=== PATIENT | male | born 1985 | race Caucasian/White ===

== ENCOUNTER 2017-03-24 09:44 | Emergency (ER) | payer SELFPAY ==
[~2017-03-24] VITALS: Ht 172.7 cm; Wt 76.0 kg
[2017-03-24 09:51] VITALS: BP 128/90; PULSE 53; RESP 16; TEMP 97.6; O2SAT 99
[2017-03-24] MEDS ORDERED: SODIUM CHLOR 0.9% 1000 ML INJ 1,000 ML IV SCH (10:02)
[2017-03-24] MEDS ORDERED: FAMOTIDINE 20 MG/2 ML VIAL IV PUSH ONE (10:15)
[2017-03-24] MEDS ORDERED: SODIUM CHLORIDE 0.9% FLUSH 10 ML FLUSH IV FLUSH PRN (10:15)
[2017-03-24] MEDS ORDERED: ONDANSETRON HCL 4 MG/2 ML VIAL IVP ONE (10:15)
[2017-03-24] MEDS ORDERED: LIDOCAINE VISCOUS 2% SOLN 15 ML UDC PO ONE (10:15)
[2017-03-24] MEDS ORDERED: ALUMINUM/MAGNESIUM/SIMETH 30 ML CUP PO ONE (10:15)
--- NOTE | 2017-03-24 10:15 | PD ---
HPI Chief Complaint: GI Complaint Time Seen by Provider: 09:54 Travel History International Travel<30 days: No Contact w/Intl Traveler<30days: No Traveled to known affect area: No History of Present Illness HPI Patient is a 31-year-old male presents to emergency room complaints of abdominal pain. He reports that 2 days ago, began to have left upper quadrant abdominal pain, reports that pain is [id number] in nature. Patient reports increased nausea and vomiting with the symptoms. He reports that nothing makes symptoms better or worse. Patient reports that he had similar symptoms 3 months ago, reports that he cannot remember what happened at that time. Patient denies any constipation or diarrhea, denies ingesting foods which exacerbated his symptoms. Denies fever/chills. Denies chest pain/sob. PFSH Past Medical History Medical History: Denies Significant Hx Influenza Vaccination: No Past Surgical History Surgical History: No Previous Surgery Social History Alcohol Use: Yes (RARELY) Tobacco Use: Yes (1/2 PPD) Substance Use: No ("NOT ANYMORE") Allergies-Medications (Allergen,Severity, Reaction): Coded Allergies: morphine (Verified Allergy, Unknown, Nausea/Vomiting, 03/24/17) Reported Meds & Prescriptions Reported Meds & Active Scripts Active Omeprazole 40 Mg Cap 40 Mg PO DAILY Zofran (Ondansetron HCl) 4 Mg Tab 4 Mg PO Q6HR PRN Review of Systems General / Constitutional: No: Fever Eyes: No: Visual changes HENT: No: Headaches Cardiovascular: No: Chest Pain or Discomfort Respiratory: No: Shortness of Breath Gastrointestinal: Positive: Nausea, Vomiting, Abdominal Pain Genitourinary: No: Dysuria Musculoskeletal: No: Pain Skin: No Rash Neurologic: No: Weakness Psychiatric: No: Depression Endocrine: No: Polydipsia Hematologic/Lymphatic: No: Easy Bruising Physical Exam Narrative GENERAL: mild distress SKIN: Focused skin assessment warm/dry. HEAD: Atraumatic. Normocephalic. EYES: Pupils equal and round. No scleral icterus. No injection or drainage. ENT: No nasal bleeding or discharge. Mucous membranes pink and moist. NECK: Trachea midline. No JVD. CARDIOVASCULAR: Regular rate and rhythm. No murmur appreciated. RESPIRATORY: No accessory muscle use. Clear to auscultation. Breath sounds equal bilaterally. GASTROINTESTINAL: Abdomen soft, increased tenderness to LUQ, no rebound on guarding on exam MUSCULOSKELETAL: No obvious deformities. No clubbing. No cyanosis. No edema. NEUROLOGICAL: Awake and alert. No obvious cranial nerve deficits. Motor grossly within normal limits. Normal speech. PSYCHIATRIC: Appropriate mood and affect; insight and judgment normal. Data Data Last Documented VS Vital Signs Date Time Temp Pulse Resp B/P (MAP) Pulse Ox O2 Delivery O2 Flow Rate FiO2 03/24/17 11:50 60 16 141/88 (105) 100 Room Air 03/24/17 09:51 97.6 Orders Orders Complete Blood Count With Diff (03/24/17 10:02) Comprehensive Metabolic Panel (03/24/17 10:02) Lipase (03/24/17 10:02) Urinalysis - C+S If Indicated (03/24/17 10:02) Iv Access Insert/Monitor (03/24/17 10:02) NPO (03/24/17 10:02) Ondansetron Inj (Zofran Inj) (03/24/17 10:15) Sodium Chlor 0.9% 1000 Ml Inj (Ns 1000 M (03/24/17 10:02) Sodium Chloride 0.9% Flush (Ns Flush) (03/24/17 10:15) Famotidine Inj (Pepcid Inj) (03/24/17 10:15) Al-Mag Hy-Si 40-40-4 Mg/Ml Liq (Mag-Al P (03/24/17 10:15) Lidocaine 2% Viscous (Xylocaine 2% Visco (03/24/17 10:15) Us Abdomen Pancreas (03/24/17 ) Sodium Chlor 0.9% 1000 Ml Inj (Ns 1000 M (03/24/17 11:45) Sucralfate Liq (Carafate Liq) (03/24/17 12:00) Labs Laboratory Tests Test 03/24/17 10:10 03/24/17 10:15 Urine Collection Type CLEAN CATCH Urine Color YELLOW Urine Turbidity CLEAR Urine pH 5.5 Urine Specific [place] 1.022 Urine Protein NEG mg/dL Urine Glucose (UA) NEG mg/dL Urine Ketones NEG mg/dL Urine Occult Blood NEG Urine Nitrite NEG Urine Bilirubin NEG Urine Leukocyte Esterase NEG Urine RBC 0-3 /hpf Urine Squamous Epithelial Cells 0-5 /hpf Microscopic Urinalysis Comment CULT NOT INDICATED Urine Collection Time 10:10 White Blood Count 11.5 TH/MM3 Red Blood Count 5.30 MIL/MM3 Hemoglobin 15.6 GM/DL Hematocrit 46.9 % Mean Corpuscular Volume 88.6 FL Mean Corpuscular Hemoglobin 29.5 PG Mean Corpuscular Hemoglobin Concent 33.3 % Red Cell Distribution Width 12.7 % Platelet Count 260 TH/MM3 Mean Platelet Volume 8.1 FL Neutrophils (%) (Auto) 68.5 % Lymphocytes (%) (Auto) 24.2 % Monocytes (%) (Auto) 2.6 % Eosinophils (%) (Auto) 3.8 % Basophils (%) (Auto) 0.9 % Neutrophils # (Auto) 7.9 TH/MM3 Lymphocytes # (Auto) 2.8 TH/MM3 Monocytes # (Auto) 0.3 TH/MM3 Eosinophils # (Auto) 0.4 TH/MM3 Basophils # (Auto) 0.1 TH/MM3 CBC Comment DIFF FINAL Differential Comment Blood Urea Nitrogen 8 MG/DL Creatinine 0.61 MG/DL Random Glucose 101 MG/DL Total Protein 7.3 GM/DL Albumin 3.5 GM/DL Calcium Level 8.5 MG/DL Alkaline Phosphatase 99 U/L Aspartate Amino Transf (AST/SGOT) 13 U/L Alanine Aminotransferase (ALT/SGPT) 23 U/L Total Bilirubin 0.3 MG/DL Sodium Level 139 MEQ/L Potassium Level 4.3 MEQ/L Chloride Level 107 MEQ/L Carbon Dioxide Level 23.7 MEQ/L Anion Gap 8 MEQ/L Estimat Glomerular Filtration Rate 155 ML/MIN Lipase 434 U/L MDM Medical Decision Making Medical Screen Exam Complete: Yes Emergency Medical Condition: Yes Medical Record Reviewed: Yes Interpretation(s) Vital Signs Date Time Temp Pulse Resp B/P (MAP) Pulse Ox O2 Delivery O2 Flow Rate FiO2 03/24/17 09:51 97.6 53 16 128/90 (103) 99 Differential Diagnosis Differential includes gastritis, gastroenteritis, gastric ulcer, esophagitis, acute cholecystitis Narrative Course Patient is a 31-year-old male who presents to emergency room complaints of left upper quadrant abdominal pain for the past 2 days. Patient reports increased nausea and vomiting with symptoms, denies any diarrhea. he does have increased tenderness to left upper quadrant exam, plan to obtain CBC, CMP, lipase. We'll administer IV fluids, Zofran, GI cocktail as well as Pepcid. Plan to monitor patient at this time. CBC & BMP Diagram 03/24/17 10:15 Total Protein 7.3, Albumin 3.5, Calcium Level 8.5, Alkaline Phosphatase 99, Aspartate Amino Transf (AST/SGOT) 13 L, Alanine Aminotransferase (ALT/SGPT) 23, Total Bilirubin 0.3 lipase 434: US ordered Patient resting comfortably at this time. Last Impressions Pancreas Ultrasound 03/24/17 0000 Signed Impressions: Service Date/Time: Friday, March 24, 2017 10:58 - CONCLUSION: 1. Unremarkable ultrasound of the pancreas 2. No gallstones or biliary tract obstruction. Justice Lewis MD Patient is feeling much better at this time. Ultrasound is unremarkable for acute changes the pancreas. Patient with no gallstones or biliary tract obstruction. Plan to have patient follow-up with gastrointestinal doctor, will start him on a ppi and carafate. He will return to ER as needed. Abdomen is soft , nt/nd, no peritoneal signs on discharge Diagnosis Primary Impression: Abdominal pain Qualified Codes: R10.10 - Upper abdominal pain, unspecified Additional Impression: Nausea & vomiting Referrals: Mana Sales MD Patient Instructions: General Instructions Departure Forms: Tests/Procedures, Work Release Enter return to work date: Mar 26, 2017 Additional Instructions: Please follow up with roller varnisher as soon as possible Return to ER as needed Please take all medications as prescribed Please take the OMEPRAZOLE on an empty stomach with a sip of water. Wait 30 minutes after you take this medication to eat or drink anything Please follow up with your primary care doctor Return to ER if symptoms worsen or persist Med/Other Pt SpecificInfo: Prescription(s) given Scripts Sucralfate Liq (Carafate Liq) 1 Gm/10 Ml Susp 1 GM PO TID for Duodenal ulcer, #900 ML 0 Refills on empty stomach Prov: Charo Nelson DO 03/24/17 Omeprazole (Omeprazole) 40 Mg Cap 40 MG PO DAILY, #30 CAP 0 Refills Prov: Charo Nelson DO 03/24/17 Ondansetron (Zofran) 4 Mg Tab 4 MG PO Q6HR Y for NAUSEA OR VOMITING, #20 TAB 0 Refills Prov: Charo Nelson DO 03/24/17 Disposition: 01 DISCHARGE HOME Condition: Stable Charo Nelson DO Mar 24, 2017 10:15
[2017-03-24 10:20] LABS: AUTOMATED NEUTROPHIL # 7.9 TH/MM3 (1.8-7.7); BASOPHIL # 0.1 TH/MM3 (0-0.2); BASOPHIL % 0.9 % (0.0-2.0); EOSINOPHIL # 0.4 TH/MM3 (0-0.4); EOSINOPHIL % 3.8 % (0.0-4.0); HEMATOCRIT 46.9 % (39.0-51.0); HEMO FLAGS DIFF FINAL; LYMPH % 24.2 % (9.0-44.0); LYMPHOCYTE # 2.8 TH/MM3 (1.0-4.8); MEAN CELL VOLUME 88.6 FL (80.0-100.0); MEAN CORPUSCULAR HEMOGLOBIN 29.5 PG (27.0-34.0); MEAN CORPUSCULAR HGB CONC 33.3 % (32.0-36.0); MONO % 2.6 % (0.0-8.0); NEUT % 68.5 % (16.0-70.0); PLATELET COUNT 260 TH/MM3 (150-450); RED CELL DISTRIBUTION WIDTH 12.7 % (11.6-17.2); WHITE BLOOD COUNT 11.5 TH/MM3 (4.0-11.0)
[2017-03-24 10:20] LABS: BLOOD, URINE NEG (NEG); GLUCOSE,URINE NEG (NEG); KETONE, URINE NEG (NEG); NITRITE,URINE NEG (NEG); PH, URINE 5.5 (5.0-8.5)
[2017-03-24 10:26] LABS: METHOD OF COLLECTION CLEAN CATCH; RBC, URINE 0-3 /hpf (0-3); URINE COLOR YELLOW (YELLW/STRAW)
[2017-03-24 10:27] LABS: COMMENT (UR) CULT NOT INDICATED; CULTURE IF INDICATED CULT NOT INDICATED; SQUAMOUS EPITHELIAL CELL URINE 0-5 /hpf (0-5)
[2017-03-24 10:29] LABS: CHLORIDE 107 MEQ/L (98-107); POTASSIUM 4.3 MEQ/L (3.5-5.1); SODIUM (NA) 139 MEQ/L (136-145)
[2017-03-24 10:34] LABS: ANION GAP 8 MEQ/L (5-15); BICARBONATE 23.7 MEQ/L (21.0-32.0); BLOOD UREA NITROGEN 8 MG/DL (7-18)
[2017-03-24 10:37] LABS: ALT (GPT) 23 U/L (12-78); AST (GOT) 13 U/L (15-37); GLOMERULAR FILTRATION RATE 155 ML/MIN (>89)
[2017-03-24 10:39] LABS: TOTAL BILIRUBIN ADULT 0.3 MG/DL (0.2-1.0)
[2017-03-24 10:40] LABS: ALKALINE PHOSPHATASE 99 U/L (45-117)
[2017-03-24] MEDS ORDERED: OMEP40CA2 PO (10:49)
[2017-03-24] MEDS ORDERED: ZOFR4TAB PO (10:49)
[2017-03-24 10:58] VITALS: BP 137/71; PULSE 64; RESP 18; O2SAT 100
--- NOTE | 2017-03-24 11:36 | RADRPT ---
EXAM DATE/TIME: 03/24/2017 10:58 [facility] COMPARISON: No previous studies available for comparison. INDICATIONS : Left upper quadrant pain. MEDICAL HISTORY : Left upper quadrant pain. SURGICAL HISTORY : None. ENCOUNTER: Initial ACUITY: 2 days PAIN SCORE: 5/10 LOCATION: Right upper quadrant MEASUREMENTS: LIVER: 17.4 cm length COMMON DUCT: 3 mm RIGHT KIDNEY: NOT SCANNED FINDINGS: LIVER: Normal echotexture without focal lesion or ductal dilatation. The portal system is patent. There is n o ascites. COMMON DUCT: No intraluminal mass or stone visualized. GALLBLADDER: Contains no stones, demonstrates no wall thickening or pericholecystic fluid. PANCREAS: The visualized portions are within normal limits. CONCLUSION: 1. Unremarkable ultrasound of the pancreas 2. No gallstones or biliary tract obstruction. Justice Lewis MD on March 24, 2017 at 11:33 Board Certified Radiologist. This report was verified electronically.
[2017-03-24] MEDS ORDERED: SODIUM CHLOR 0.9% 1000 ML INJ 1,000 ML IV ONE (11:45)
[2017-03-24 11:50] VITALS: BP 141/88; PULSE 60; RESP 16; O2SAT 100
[2017-03-24] MEDS ORDERED: CARA1SUS3 PO (11:58)
[2017-03-24] MEDS ORDERED: SUCRALFATE 1 GM/10 ML CUP PO ONE (12:00)
== END 2017-03-24 12:07 | disposition home or self-care (01) ==
LOC: PHED 09:44
DX: R10.10 Upper abdominal pain, unspecified (principal); R11.2 Nausea with vomiting, unspecified; F17.200 Nicotine dependence, unspecified, uncomplicated
CPT/HCPCS: 76705; 80053; 81001; 83690; 85025; 96361; 96374; 96375; 99285; J2405; J7030

== ENCOUNTER 2017-04-30 16:19 | Emergency (ER) | payer OTHER ==
[~2017-04-30] VITALS: Ht 175.3 cm; Wt 82.0 kg
[~2017-04-30 16:19] MED LIST: CARA1SUS3 PO; OMEP40CA2 PO; ZOFR4TAB PO
[2017-04-30 16:23] VITALS: BP 138/76; PULSE 82; RESP 16; TEMP 98; O2SAT 97
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
[2017-04-30] MEDS ORDERED: IBUPROFEN 200 MG TAB PO ONE (16:45)
[2017-04-30] MEDS ORDERED: TETANUS/DIPHTHERIA TOXOID ADULT 0.5 ML VIAL IM ONE (16:45)
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
[2017-04-30] MEDS ORDERED: IBUP-232 PO (17:11)
[2017-04-30] MEDS ORDERED: CYCL10TA PO (17:11)
== END 2017-04-30 17:34 | disposition home or self-care (01) ==
LOC: PHED 16:19
DX: S01.81XA Laceration without foreign body of other part of head, initial encounter (principal); S00.411A Abrasion of right ear, initial encounter; M54.2 Cervicalgia; V89.2XXA Person injured in unspecified motor-vehicle accident, traffic, initial encounter; Y92.415 Exit ramp or entrance ramp of street or highway as the place of occurrence of the external cause; Z23 Encounter for immunization
CPT/HCPCS: 12002; 12013; 72125; 90471; 90714